=== PATIENT | female | born 1980 | race Caucasian/White ===

== ENCOUNTER 2017-03-24 12:35 | Emergency (ER) | payer OTHER ==
[2017-03-24] MEDS ORDERED: ACETAMINOPHEN 325 MG TABLET PO STA (14:14)
[2017-03-24] MEDS ORDERED: AMOX/CLAV 875 MG/125 MG TABLET PO STA (14:14)
[2017-03-24] MEDS ORDERED: AMOX/CLAV 875 MG/125 MG TABLET PO ONE (14:15)
[2017-03-24] MEDS ORDERED: ACETAMINOPHEN 325 MG TABLET PO ONE (14:15)
== END 2017-03-24 14:28 | disposition home or self-care (01) ==
DX: S61.250A Open bite of right index finger without damage to nail, initial encounter (principal); L08.9 Local infection of the skin and subcutaneous tissue, unspecified; W54.0XXA Bitten by dog, initial encounter
CPT/HCPCS: 99283; A9270

== ENCOUNTER 2018-05-16 17:07 | Emergency (ER) | END 2018-05-16 20:13 | disposition home or self-care (01) ==

== ENCOUNTER 2018-07-12 14:50 | Emergency (ER) | payer OTHER ==
[2018-07-12 15:41] LABS: BASOPHILS % (AUTO) 0.3 %; EOSINOPHILS # (AUTO) 0.5 10^3/uL (0.0-0.7); EOSINOPHILS % (AUTO) 6.4 %; HGB - HEMOGLOBIN 12.1 g/dL (12.0-16.0); LYMPHOCYTES # (AUTO) 2.3 10^3/uL (1.5-3.5); LYMPHOCYTES % (AUTO) 28.6 %; MEAN CORPUSCULAR HGB CONC 33.6 g/dL (32.0-36.0); MEAN CORPUSCULAR VOLUME 83.2 fL (81.0-99.0); MEAN PLATELET VOLUME 8.4 fL (7.9-10.8); MONOCYTES # (AUTO) 0.6 10^3/uL (0.0-1.0); MONOCYTES % (AUTO) 7.6 %; NEUTROPHILS # (AUTO) 4.6 10^3/uL (1.5-6.6); NEUTROPHILS % (AUTO) 57.1 %; PLT - PLATELET COUNT 310 10^3/uL (130-450); RED BLOOD COUNT 4.31 10^6/uL (4.20-5.40); RED CELL DISTRIBUTION WIDTH 17.4 % (12.0-15.0)
[2018-07-12 15:55] LABS: ALBUMIN 3.8 g/dL (3.2-5.5); ALBUMIN/GLOBULIN RATIO 1.1 (1.0-2.2); BILIRUBIN,TOTAL 0.5 mg/dL (0.2-1.0); CALCIUM 8.7 mg/dL (8.5-10.3); CREATININE 0.6 mg/dL (0.4-1.0); TOTAL PROTEIN 7.2 g/dL (6.7-8.2)
[2018-07-12] MEDS ORDERED: SODIUM CHLORIDE 0.9% 1,000 ML IV ONE (16:14)
--- NOTE | 2018-07-12 17:23 | ED Physician Documentation ---
History of Present Illness - Stated complaint Stated Complaint: SHAKY/LIGHTHEADED/6WKS PREG - Chief complaint Chief Complaint: General - History obtained from History obtained from: Patient - History of Present Illness Pain level max: 0 Pain level now: 0 Improved by: lying down Worsened by: standing up - Additonal information Additional information: Patient is a 38-year-old female, approximately 6 weeks . via IVF. States has been on iron pills and these have been causing her diarrhea. She has been having increasing diarrhea over the past few days. Now feels lightheaded with standing. Feels shaky. No vaginal bleeding, cramping, abdominal pain. Review of Systems Ten Systems: 10 systems reviewed and negative Constitutional: denies: Fever, Chills Nose: denies: Rhinorrhea / runny nose Cardiac: denies: Chest pain / pressure Respiratory: denies: Cough GI: denies: Vomiting Skin: denies: Rash Musculoskeletal: denies: Neck pain, Back pain Neurologic: denies: Headache PD PAST MEDICAL HISTORY - Past Medical History Cardiovascular: None Respiratory: None Endocrine/Autoimmune: None - Past Surgical History Past Surgical History: Yes General: Cholecystectomy, Gastric surgery HEENT: Tonsil/Adenoidectomy - Present Medications Home Medications: Ambulatory Orders Medication Instructions Recorded Confirmed Betamethasone/Propylene Glyc 1 applic TP BID #15 cream..g. 05/21/16 [Betamethasone Dp Aug 0.05% Crm] Ferrous Sulfate [Iron Supplement] 0 tab ORAL DAILY 05/21/16 05/21/16 Vit Calc,Iron,Folic 1 tab PO DAILY 05/21/16 05/21/16 [ Vitamins] Amox/Clav 875/125 [Augmentin] 1 each PO BID #14 tablet 03/24/17 - Allergies Allergies/Adverse Reactions: Allergies Allergy/AdvReac Type Severity Reaction Status Date / Time ceftriaxone sodium * Allergy Rash Verified 05/16/18 17:31 [From Rocephin] ciprofloxacin [From Cipro] Allergy Rash Verified 05/16/18 17:31 ciprofloxacin HCl * Allergy Rash Verified 05/16/18 17:31 [From Cipro] nitrofurantoin Allergy Rash Verified 05/16/18 17:31 [From Macrobid] nitrofurantoin Allergy Rash Verified 05/16/18 17:31 macrocrystalline * [From Macrobid] - Social History Does the pt smoke?: No Smoking Status: Never smoker Does the pt drink ETOH?: No Does the pt have substance abuse?: No - Immunizations Immunizations: TDAP >10years/unknown - POLST Patient has POLST: No PD ED PE NORMAL - Vitals Vital signs reviewed: Yes - General General: Alert and oriented X 3, No acute distress - HEENT HEENT: Other (dry lips) - Neck Neck: Supple, no meningeal sign - Cardiac Cardiac: RRR - Respiratory Respiratory: No respiratory distress, Clear bilaterally - Abdomen Abdomen: Normal bowel sounds, Soft, Non tender - Back Back: No CVA TTP, No spinal TTP - Derm Derm: Warm and dry, No rash - Extremities Extremities: No edema - Neuro Neuro: Alert and oriented X 3 - Psych Psych: Normal mood, Normal affect Results - Vitals Vitals: Vital Signs - 24 hr 07/12/18 07/12/18 15:11 19:21 Temperature 36.4 C L 36.0 C L Heart Rate 68 64 Respiratory 16 15 Rate Blood Pressure 120/73 117/76 O2 Saturation 100 100 Oxygen O2 Source Room air - Labs Labs: Laboratory Tests 07/12/18 07/12/18 07/12/18 15:30 15:37 15:37 WBC 8.0 RBC 4.31 Hgb 12.1 Hct 35.9 L MCV 83.2 MCH 28.0 MCHC 33.6 RDW 17.4 H Plt Count 310 MPV 8.4 Neut # (Auto) 4.6 Lymph # (Auto) 2.3 Slope # (Auto) 0.6 Eos # (Auto) 0.5 Baso # (Auto) 0.0 Absolute Nucleated RBC 0.00 Nucleated RBC % 0.0 Sodium 137 Potassium 3.3 L Chloride 104 Carbon Dioxide 24 Anion Gap 9.0 BUN 8 Creatinine 0.6 Estimated GFR (MDRD) 112 Glucose 90 Calcium 8.7 Total Bilirubin 0.5 AST 22 ALT 15 Alkaline Phosphatase 58 Total Protein 7.2 Albumin 3.8 Globulin 3.4 Albumin/Globulin Ratio 1.1 Lipase 43 Urine Color YELLOW Urine Clarity CLEAR Urine pH 5.5 Ur Specific [place] 1.025 Urine Protein NEGATIVE Urine Glucose (UA) NEGATIVE Urine Ketones NEGATIVE Urine Occult Blood NEGATIVE Urine Nitrite NEGATIVE Urine Bilirubin NEGATIVE Urine Urobilinogen 0.2 (NORMAL) Ur Leukocyte Esterase NEGATIVE Ur Microscopic Review NOT INDICATED Urine Culture Comments NOT INDICATED PD MEDICAL DECISION MAKING - ED course Complexity details: reviewed results, re-evaluated patient, considered differential, d/w patient ED course: Patient is a 38-year-old female, approximately 6 weeks . Presents with what appears to be dehydration after having diarrhea. Abdomen is soft, nontender nondistended. She is well-appearing, nontoxic. Feels much better after IV fluids. Will follow up with her OB for further care. Patient counseled regarding signs and symptoms for which I believe and urgent re- evaluation would be necessary. Patient with good understanding of and agreement to plan and is comfortable going home at this time This document was made in part using voice recognition software. While efforts are made to proofread this document, sound alike and grammatical errors may occur. She is not having any vaginal bleeding or discharge - Sepsis Event Vital Signs: Vital Signs - 24 hr 07/12/18 07/12/18 15:11 19:21 Temperature 36.4 C L 36.0 C L Heart Rate 68 64 Respiratory 16 15 Rate Blood Pressure 120/73 117/76 O2 Saturation 100 100 Oxygen O2 Source Room air Departure - Departure Disposition: 01 Home, Self Care Clinical Impression: Dehydration Diarrhea Qualifiers: Diarrhea type: unspecified type Qualified Code(s): R19.7 - Diarrhea, unspecified Condition: Good Instructions: ED Dehydration Follow-Up: your,doctor in 1 week [Other] Comments: Go home and rest. Drink plenty of fluids. Return if you worsen Discharge Date/Time: 07/12/18 19:22
[2018-07-12 18:34] LABS: BILIRUBIN,URINE NEGATIVE (NEGATIVE); GLUCOSE, URINE (UA) NEGATIVE (NEGATIVE); KETONES,URINE (UA) NEGATIVE (NEGATIVE); LEUKOCYTE ESTERASE, URINE NEGATIVE (NEGATIVE); NITRITE,URINE NEGATIVE (NEGATIVE); OCCULT BLOOD,URINE NEGATIVE (NEGATIVE); PH,URINE 5.5 PH (5.0-7.5); PROTEIN,URINE NEGATIVE (NEGATIVE); UROBILINOGEN,URINE 0.2 (NORMAL) E.U./dL (NORMAL)
[2018-07-12 18:35] LABS: CLARITY,URINE CLEAR (CLEAR)
[2018-07-12 19:21] VITALS: BP 117/76
== END 2018-07-12 19:22 | disposition home or self-care (01) ==
LOC: ED 14:50
DX: O99.89 Other specified diseases and conditions complicating pregnancy, childbirth and the puerperium (principal); E86.0 Dehydration; R19.7 Diarrhea, unspecified
CPT/HCPCS: 36415; 80053; 81001; 81003; 83690; 85025; 87086; 99283